=== PATIENT | male | born 1990 | race Caucasian/White ===

== ENCOUNTER 2018-02-24 16:29 | Emergency (ER) | payer MEDICAID ==
[2018-02-24] MEDS ORDERED: ceFAZolin 1 GM in Sodium Chloride 0.9% 50 ML IV ONE (16:47)
--- NOTE | 2018-02-24 17:34 | ED Physician Chart ---
ED Chief Complaint/HPI - Patient Information Date Seen:: 02/24/18 Time Seen:: 16:39 Chief Complaint:: R hand trauma History of Present Illness:: self-inflicted R hand trauma. Was "arguing" (verbal) with his girlfriend, not "fighting" (physical) with her. At 4 p.m., he decided to put his R hand through the television set to make a point. His girlfriend doesn't have a car so she did not drive him here to the hospital. Both the patient and his girlfriend have [employer] and [employer] accounts. They decided to call 911 for ambulance transport even though his wound is not bleeding and he could have come to this hospital via private car. Allergies:: Allergies Allergy/AdvReac Type Severity Reaction Status Date / Time No Known Allergies Allergy Verified 02/24/18 16:38 Vitals:: Vital Signs - 8 hr 02/24/18 16:39 Temp 98.1 F HR 94 RR 18 BP 123/77 O2 Sat % 99 Historian:: Patient, Family Member Review:: Nurse's Note Reviewed ED Review of Systems - Review of Systems General/Constitutional: No fever, No chills, No weight loss, No weakness, No diaphoresis, No edema, No loss of appetite Skin: Other (loss of skin over the right small finger extensor mechanism.) Head: No headache, No light-headedness Eyes: No loss of vision, No pain, No diplopia ENT: No earache, No nasal drainage, No sore throat, No tinnitus Neck: No neck pain, No swelling, No thyromegaly, No stiffness, No mass noted Cardio Vascular: No chest pain, No palpitations, No PND, No orthopnea, No edema Pulmonary: No SOB, No cough, No sputum, No wheezing GI: No nausea, No vomiting, No diarrhea, No pain, No melena, No hematochezia, No constipation, No hematemesis G/U: No dysuria, No frequency, No hematuria Musculoskeletal: Other (right hand pain) Endocrine: No polyuria, No polydipsia Psychiatric: No prior psych history, No depression, No anxiety, No suicidal ideation Hematopoietic: No bruising, No lymphadenopathy Allergic/Immuno: No urticaria, No angioedema Neurological: No syncope, No focal symptoms, No weakness, No paresthesia, No headache, No seizure, No dizziness, No confusion, No vertigo ED Past Medical History - Past Medical History Obtainable: Yes Past Medical History: No significant medical hx ED Physical Exam - Physical Examination General/Constitutional: Awake, Well-developed, well-nourished, GCS 15, Non- toxic appearing, Ambulatory Other Gen/Cons comments:: c/o R hand pain Head: Atraumatic Eyes: Lids, conjuctiva normal, PERRL, EOMI Other Skin comments:: Right small finger with loss of skin directly overlying the extensor mechanism. Loss of skin is present over both the middle phalanx and distal phalanx. Patient refuses to move the right small finger due to pain. NV intact. 3 second capillary refill. ENMT: External ears, nose nl Other Extremities comments:: Right small finger with loss of skin directly overlying the extensor mechanism. Loss of skin is present over both the middle phalanx and distal phalanx. Patient refuses to move the right small finger due to pain. NV intact. 3 second capillary refill. Neuro/Psych: Alert/oriented Other Neuro/Psych comments:: anxious ED Assessment - Assessment General Assessment: xray of right hand: possible cortical elevation of bone seen on lateral view. Obvious soft tissue deformity present overlying the right small finger. ED Septic Shock - . Is Septic Shock (SBP<90, OR Lactate>4 mmol\\L) present?: No - <6hrs of presentation: Vital Signs: Vital Signs - 8 hr /12/04 16:39 Temp 98.1 F HR 94 RR 18 BP 123/77 O2 Sat % 99 ED Reassessment (Disposition) - Reassessment Reassessment Condition:: Unchanged - Diagnosis Diagnosis:: Right small finger with loss of skin overlying the extensor mechanism with possible cortical elevation. Patient is not to eat or drink anything. He will be provided a CD with the hand images on it. He was told that we don't have a hand surgeon or plastic surgeon available to take care of his problem. The patient is stable to go via private car. His mother has arrived to take him to a facility where a hand surgeon or plastic surgeon is available to take care of him. He will need reconstructive surgery tonight. His finger is viable and there is no concern over neurovascular compromise. - Aftercare/Follow up Instructions Aftercare/Follow-Up Instructions:: Refer to Discharge Instructions - Patient Disposition Discharge/Transfer:: per mother Condition at Disposition:: Stable, Unchanged
--- NOTE | 2018-02-25 09:02 | Diagnostic Imaging Report ---
Right hand 3 views Indication: Trauma Comparison: none Findings: There is soft tissue defect overlying wrapping material seen along the right fifth mid to distal phalanges. No gross fracture or erosions. No dislocation. Impression: Evidence of soft tissue injury and defect seen along the right fifth mid to distal phalanges. No gross fracture identified. Overlying wrapping Mildly limits assessment of the exam. Please correlate clinically. In the setting of trauma, if clinical symptoms persist and there is continued concern for an occult fracture, follow up exams in 5-7 days is suggested.
== END 2018-02-24 17:40 | disposition short-term general hospital (02) ==
LOC: ER 16:29
DX: S61.216A Laceration without foreign body of right little finger without damage to nail, initial encounter (principal); W26.8XXA Contact with other sharp object(s), not elsewhere classified, initial encounter; Y93.89 Activity, other specified; Y92.89 Other specified places as the place of occurrence of the external cause; Y99.8 Other external cause status
CPT/HCPCS: 99285; 96365; 96375; 73130; 90715; J1885; J0690